=== PATIENT | female | born 1960 | race Hispanic/Latino ===

== ENCOUNTER 2019-02-10 22:15 | Emergency (ER) | payer OTHER ==
[~2019-02-10] VITALS: Ht 160 cm; Wt 91.6 kg
--- OUTSIDE RECORDS SUMMARY | 2019-02-10 22:17 | XMS REPORT | Encounter Summary ---
Author Organization Unknown Address [address] [place] [address] Phone [phone] Reason for Visit Medical Complaint Instructions 1. Acute upper respiratory infection rapid flu (A+B) upper respiratory infection (cold): care instructions benzonatate 200 mg capsule 2. Contact dermatitis dermatitis: care instructions triamcinolone acetonide 0.1 % topical cream 3. Rhinitis Depo-Medrol 80 mg/mL suspension for injection rhinitis: care instructions 4. Elevated blood pressure elevated blood pressure: care instructions dash diet: care instructions blood pressure monitoring education 5. Influenza vaccination declined Discussion Note: None recorded. Plan of Care Patient Instructions An upper respiratory infection, or URI, is an infection of the nose, sinuses, or throat. URIs are spread by coughs, sneezes, and direct contact. The common cold is the most frequent kind of URI. The flu and sinus infections are other kinds of URIs. Almost all URIs are caused by viruses. Antibiotics won't cure them. But you can treat most infections with home care. This may include drinking lots of fluids and taking cfly-nif-xzwfxnd pain medicine. You will probably feel better in 4 to 10 days. The doctor has checked you carefully, but problems can develop later. If you notice any problems or new symptoms, get medical treatment right away. Follow-up care is a medrano part of your treatment and safety. Be sure to make and go to all appointments, and call your doctor if you are having problems. It's also a good idea to know your test results and keep a list of the medicines you take. How can you care for yourself at home? To prevent dehydration, drink plenty of fluids, enough so that your urine is light yellow or clear like water. Choose water and other caffeine-free clear liquids until you feel better. If you have kidney, heart, or liver disease and have to limit fluids, talk with your doctor before you increase the amount of fluids you drink. Take an xzhf-dxx-urqqnom pain medicine, such as acetaminophen (Tylenol), ibuprofen (Advil, Motrin), or naproxen (Aleve). Read and follow all instructions on the label. Before you use cough and cold medicines, check the label. These medicines may not be safe for young children or for people with certain health problems. Be careful when taking awml-rrk-akjdmep cold or flu medicines and Tylenol at the same time. Many of these medicines have acetaminophen, which is Tylenol. Read the labels to make sure that you are not taking more than the recommended dose. Too much acetaminophen (Tylenol) can be harmful. Get plenty of rest. Do not smoke or allow others to smoke around you. If you need help quitting, talk to your doctor about stop-smoking programs and medicines. These can increase your chances of quitting for good. When should you call for help? Call 911 anytime you think you may need emergency care. For example, call if: You have severe trouble breathing. Call your doctor now or seek immediate medical care if: You seem to be getting much sicker. You have new or worse trouble breathing. You have a new or higher fever. You have a new rash. Watch closely for changes in your health, and be sure to contact your doctor if: You have a new symptom, such as a sore throat, an earache, or sinus pain. You cough more deeply or more often, especially if you notice more mucus or a change in the color of your mucus. You do not get better as expected. Reminders Provider Appointments None recorded. Lab Rapid Flu (A+B) 10/22/2018 [facility] Referral None recorded. Procedures None recorded. Surgeries None recorded. Imaging None recorded. Medications Name Start Date Advair Diskus 500 mcg-50 mcg/dose powder for inhalation INHALE 1 DOSE BY MOUTH TWICE DAILY. RINSE MOUTH AFTER USE albuterol sulfate 2.5 mg/3 mL (0.083 %) solution for nebulization USE 1 VIAL VIA NEBULIZER EVERY 4 TO 6 HOURS NEEDED FOR ASTHMA benzonatate 200 mg capsule Take 1 capsule 3 times a day by oral route as needed for coughing for 10 days. Depo-Medrol 80 mg/mL suspension for injection Take 1 mL by injection route. Enjuvia 0.3 mg tablet Take 1 tablet every day by oral route. EpiPen 2-Jass 0.3 mg/0.3 mL injection, auto-injector USE DIRECTED esomeprazole magnesium 40 mg capsule,delayed release Take 1 capsule every day by oral route. fluoxetine 20 mg capsule TAKE ONE CAPSULE BY MOUTH EVERY MORNING ipratropium bromide 42 mcg (0.06 %) nasal spray 1-2 PUFFS EACH SIDE OF NOSE TWICE A DAY TO 3 TIMES A DAY WHEN NECESSARY losartan 100 mg-hydrochlorothiazide 12.5 mg tablet montelukast 10 mg tablet TAKE 1 TABLET BY MOUTH EVERY DAY Nasonex 50 mcg/actuation [place] 2 sprays every day by intranasal route. Pataday Pataday 0.2 % eye drops INSTILL 1 DROP INTO AFFECTED EYE(S) BY OPHTHALMIC ROUTE ONCE DAILY Qvar 80 mcg/actuation Metered Aerosol oral inhaler rosuvastatin 20 mg tablet TAKE 1 TABLET BY MOUTH ONCE A DAY Spiriva Respimat 1.25 mcg/actuation solution for inhalation Inhale 2 puffs every day by inhalation route. triamcinolone acetonide 0.1 % topical cream APPLY A THIN LAYER TO THE AFFECTED AREA(S) BY TOPICAL ROUTE 2 TIMES PER DAY Xopenex 0.63 mg/3 mL solution for nebulization Give 1 inhalation every 20 minutes by nebulizer route as needed Xopenex HFA 45 mcg/actuation aerosol inhaler Inhale 2 puffs every 6 hours by inhalation route. Medications Administered Name Date Depo-Medrol 80 mg/mL suspension for injection Take 1 mL by injection route. [id number] Vitals Height Weight BMI Blood Pressure 5 ft 3 in 200 lbs 35.4 kg/m2 118/80 mm[Hg] Lab Results Date Name Specimen Result Interpretation Description Value Range Status Address Rapid Flu (A+B) Influenza a negative [facility]: [address] [place] [address] Influenza B negative [facility]: [address] [place] [address] Allergies Code Code System Name Reaction Severity Status Onset Penicillins Rash Severe Active Problems Name Status Onset Date Source Viral Bronchitis Active 07/28/2018 Hyperlipidemia Active 07/28/2018 Body Mass Index 30+ - Obesity Active 07/28/2018 Essential Hypertension Active 07/28/2018 Acute Exacerbation of Asthma Active 07/28/2018 Gastroesophageal Reflux Disease Active 07/28/2018 Immunization Advised Active 07/28/2018 Asthma Active Encounter Procedures Date Name Performed by Delivery Information not available Cholecystectomy Information not available Hysterectomy Information not available Vaccine List None recorded. Social History Smoking Status Never Smoker Past Encounters 10/22/2018 Acute Upper Respiratory Infection; Contact Dermatitis; Rhinitis; Elevated Blood Pressure; Influenza Vaccination Declined Rabia Nickerson, [facility]-C: [address] [facility], [place] [address], Ph. History of Present Illness Jtqy-Vqusgni-Fjuam-Skin Lesion-Bite 1 Reported By: Patient HPI: Location: neck. Quality: not itchy, not painful. Severity: improving. Context: no new detergents or skin products, no one else with similar rash, no sting or bite. Aggravating factors: nothing makes it worse. Associated Symptoms: no fever/chills, no muscle aches, no headache, no nausea, no vomiting, no diarrhea, no urinary symptoms, cold symptoms Edfxp-Lwwosnkyox-Coazodo Reported By: Patient HPI: Location: head/sinuses. Quality: nasal/sinus congestion. Duration: 2days. Onset/Timing: gradual. Context: no sick contacts, no foreign travel, non-smoker. Associated Symptoms: no sputum production, no shortness of breath, no wheezing, no change in number of pillows needed to sleep at night, no sweats, no significant weight gain, no significant weight loss, no morning cough, no sore throat, no vomiting, no diarrhea, no nausea, no fever, no headache, rash, muscle aches Note:58 YO female with rash around ears and back of neck, body aches, runny nose, nasal congestion, sneezing, sweats x 2 days Review of Systems:ROS as noted in the HPI Review of Systems Basic Reported By: Patient Notes: 58 YO female with rash around ears and back of neck, body aches, runny nose, nasal congestion, sneezing, sweats x 2 days Physical Exam Adult Basic, Adult Female Complete Reported By: Patient Constitutional: General Appearance: obese. Level of Distress: NAD. Ambulation: ambulating normally Psychiatric: Mental Status: active and alert. Orientation: to time, to place, to person Sqg-Fstf-Vcxhr-Throat: Ears: no lesions on external ear, no outer ear tenderness, EACs clear, TMs clear. Hearing: no hearing loss. Nose: no lesions on external nose, nares patent, no septal deviation, nasal passages clear, no sinus tenderness, no nasal discharge. Lips, Teeth, and Gums: no mouth or lip ulcers, no bleeding gums, normal dentition. Oropharynx: moist mucous membranes, no erythema, no exudates, tonsils not enlarged Lungs: Respiratory effort: no dyspnea, no tachypnea, no use of accessory muscles, no intercostal retractions. Auscultation: breath sounds normal Cardiovascular: Heart Auscultation: RRR, no murmurs Skin: Inspection and palpation: no lesions, no ulcer, no abnormal nevi, no induration, no nodules, good turgor, no jaundice, rash Notes: 58 YO female with rash around ears and back of neck, body aches, runny nose, nasal congestion, sneezing, sweats x 2 days
--- OUTSIDE RECORDS SUMMARY | 2019-02-10 22:17 | XMS REPORT | Continuity of Care Document ---
Author Author [place] Address Unknown Phone Unavailable Care Team Providers Care [employer] Machine [employer]er Name Role Phone 4tiitoo Unavailable Unavailable Problems Problem Status Onset Date Classification Date Reported Comments Source Rhinitis 10/22/2018 Diagnosis 10/23/2018 [facility] Contact dermatitis 10/22/2018 Diagnosis 10/23/2018 [facility] Elevated blood pressure 10/22/2018 Diagnosis 10/23/2018 [facility] Acute upper respiratory infection 10/22/2018 Diagnosis 10/23/2018 [facility] Body mass index 30+ - obesity 07/28/2018 Diagnosis 07/28/2018 [facility] Immunization advised 07/28/2018 Diagnosis 07/28/2018 [facility] Viral bronchitis 07/28/2018 Diagnosis 07/28/2018 [facility] Acute exacerbation of asthma 07/28/2018 Diagnosis 07/28/2018 [facility] Essential hypertension 07/28/2018 Diagnosis 07/28/2018 [facility] Viral Bronchitis 07/28/2018 Problem 10/23/2018 [facility] Hyperlipidemia 07/28/2018 Problem 10/23/2018 [facility] Body Mass Index 30+ - Obesity 07/28/2018 Problem 10/23/2018 [facility] Essential Hypertension 07/28/2018 Problem 10/23/2018 [facility] Acute Exacerbation of Asthma 07/28/2018 Problem 10/23/2018 [facility] Gastroesophageal Reflux Disease 07/28/2018 Problem 10/23/2018 [facility] Immunization Advised 07/28/2018 Problem 10/23/2018 [facility] Lower respiratory tract infection 08/16/2016 Diagnosis 08/16/2016 [facility] Colitis, Enteritis and Gastroenteritis Presumed Infectious Problem 08/16/2016 [facility] Bacterial Conjunctivitis Problem 08/16/2016 [facility] Common Cold Problem 08/16/2016 [facility] Acute Sinusitis Problem 08/16/2016 [facility] Acute Maxillary Sinusitis Problem 08/16/2016 [facility] Acute Upper Respiratory Infection Problem 08/16/2016 [facility] Asthma Problem 10/23/2018 [facility] Medications Medication Details Route Status Patient Instructions Ordering Provider Order Date Source Fluticasone propionate 0.5 MG/ACTUAT / salmeterol 0.05 MG/ACTUAT Dry Powder Inhaler Advair Diskus 500 mcg-50 mcg/dose powder for inhalation INHALE 1 DOSE BY MOUTH TWICE DAILY. RINSE MOUTH AFTER USE Active [facility] Albuterol 0.83 MG/ML Inhalant Solution albuterol sulfate 2.5 mg/3 mL (0.083 %) solution for nebulization USE 1 VIAL VIA NEBULIZER EVERY 4 TO 6 HOURS NEEDED FOR ASTHMA Active [facility] Amlodipine 5 MG Oral Tablet amlodipine 5 mg tablet Active [facility] benzonatate 200 MG Oral Capsule benzonatate 200 mg capsule Take 1 capsule 3 times a day by oral route as needed for coughing for 10 days. Active [facility] Brompheniramine Maleate 0.4 MG/ML / Dextromethorphan Hydrobromide 2 MG/ML / Pseudoephedrine Hydrochloride 6 MG/ML Oral Solution slqaclatijlisqi-ropvipbzqpdizdo-UU 2 mg-30 mg-10 mg/5 mL syrup Active [facility] cefdinir 300 MG Oral Capsule cefdinir 300 mg capsule Active [facility] Clarithromycin 500 MG Oral Tablet clarithromycin 500 mg tablet Active [facility] 24 HR Clarithromycin 500 MG Extended Release Oral Tablet clarithromycin ER 500 mg tablet,extended release 24 hr Active [facility] Rosuvastatin calcium 20 MG Oral Tablet [Crestor] Crestor 20 mg tablet Active [facility] Cholecalciferol 57879 UNT Oral Capsule [Decara] Decara 50,000 unit capsule Active [facility] Desonide 0.5 MG/ML Topical Cream desonide 0.05 % topical cream Active [facility] synthetic conjugated estrogens, B 0.3 MG Oral Tablet [Enjuvia] Enjuvia 0.3 mg tablet Take 1 tablet every day by oral route. Active [facility] 0.3 ML Epinephrine 1 MG/ML Auto-Injector [Epipen] EpiPen 2-Jass 0.3 mg/0.3 mL injection, auto-injector Active [facility] Esomeprazole 40 MG Delayed Release Oral Capsule esomeprazole magnesium 40 mg capsule,delayed release Take 1 capsule every day by oral route. Active [facility] Fluoxetine 20 MG Oral Capsule fluoxetine 20 mg capsule TAKE ONE CAPSULE BY MOUTH EVERY MORNING Active [facility] Gentamicin Sulfate ([facility]) 3 MG/ML Ophthalmic Solution gentamicin 0.3 % eye drops Active [facility] Ipratropium Webb 0.2 MG/ML Inhalant Solution ipratropium bromide 0.02 % solution for inhalation USE 1 VIAL VIA NEBULIZER EVERY 4 TO 6 HOURS NEEDED FOR ASTHMA Active [facility] Levofloxacin 500 MG Oral Tablet levofloxacin 500 mg tablet Active [facility] methylprednisolone 4 mg tablets in a dose pack methylprednisolone 4 mg tablets in a dose pack Active [facility] montelukast 10 MG Oral Tablet montelukast 10 mg tablet TAKE 1 TABLET BY MOUTH EVERY DAY Active [facility] NITROFURANTOIN, MACROCRYSTALS 25 MG / Nitrofurantoin, Monohydrate 75 MG Oral Capsule nitrofurantoin monohydrate/macrocrystals 100 mg capsule Active [facility] Nitroglycerin 0.4 MG Sublingual Tablet [Nitrostat] Nitrostat 0.4 mg sublingual tablet Active [facility] pantoprazole 40 MG Delayed Release Oral Tablet pantoprazole 40 mg tablet,delayed release Active [facility] Microencapsulated Potassium Chloride 20 MEQ Extended Release Oral Tablet potassium chloride ER 20 mEq tablet,extended release(part/cryst) Active [facility] Prednisone 20 MG Oral Tablet prednisone 20 mg tablet Active [facility] Estrogens, Conjugated ([facility]) 0.3 MG Oral Tablet [Premarin] Premarin 0.3 mg tablet Active [facility] 200 ACTUAT Albuterol 0.09 MG/ACTUAT Metered Dose Inhaler [ProAir] ProAir HFA 90 mcg/actuation aerosol inhaler INHALE 2 PUFFS BY MOUTH EVERY 4-6 HOURS NEEDED Active [facility] Dextromethorphan Hydrobromide 3 MG/ML / Promethazine Hydrochloride 1.25 MG/ML Oral Solution promethazine-DM 6.25 mg-15 mg/5 mL syrup Take 5 mL every 6 hours by oral route. Active [facility] Beclomethasone Dipropionate 0.08 MG/ACTUAT Metered Dose Inhaler Qvar 80 mcg/actuation Metered Aerosol oral inhaler Active [facility] Dexamethasone 1 MG/ML / Tobramycin 3 MG/ML Ophthalmic Suspension tobramycin 0.3 %-dexamethasone 0.1 % eye drops,suspension Active [facility] Triamcinolone Acetonide 1 MG/ML Topical Cream triamcinolone acetonide 0.1 % topical cream APPLY A THIN LAYER TO THE AFFECTED AREA(S) BY TOPICAL ROUTE 2 TIMES PER DAY Active [facility] Hydrochlorothiazide 50 MG / Triamterene 75 MG Oral Tablet triamterene 75 mg-hydrochlorothiazide 50 mg tablet Active [facility] Hyoscyamine Sulfate 0.12 MG / Methenamine 118 MG / Methylene blue 10 MG / phenyl salicylate 36 MG / Sodium Phosphate, Monobasic 40.8 MG Oral Capsule Uro-MP 118 mg-10 mg-40.8 mg-36 mg capsule Active [facility] omalizumab 150 MG Injection [Xolair] Xolair 150 mg subcutaneous solution Active [facility] Azithromycin 250 MG Oral Tablet Zithromax Z-Jass 250 mg tablet TAKE 2 TABLETS (500 MG) BY ORAL ROUTE ONCE DAILY FOR 1 DAY THEN 1 TABLET (250 MG) BY ORAL ROUTE ONCE DAILY FOR 4 DAYS Active [facility] Albuterol 0.83 MG/ML Inhalation Solution albuterol sulfate 2.5 mg/3 mL (0.083 %) solution for nebulization USE 1 VIAL VIA NEBULIZER EVERY 4 TO 6 HOURS NEEDED FOR ASTHMA Active [facility] 1 ML methylprednisolone acetate 80 MG/ML Injection [Depo-Medrol] Depo-Medrol 80 mg/mL suspension for injection Take 1 mL by injection route. Active [facility] [id number] 0.3 ML Epinephrine 1 MG/ML Auto-Injector [Epipen] EpiPen 2-Jass 0.3 mg/0.3 mL injection, auto-injector USE DIRECTED Active [facility] Ipratropium Webb 0.042 MG/ACTUAT Metered Dose Nasal [place] ipratropium bromide 42 mcg (0.06 %) nasal spray 1-2 PUFFS EACH SIDE OF NOSE TWICE A DAY TO 3 TIMES A DAY WHEN NECESSARY Active [facility] Hydrochlorothiazide 12.5 MG / Losartan Potassium 100 MG Oral Tablet losartan 100 mg-hydrochlorothiazide 12.5 mg tablet Active [facility] mometasone furoate 0.05 MG/ACTUAT Metered Dose Nasal [place] [Nasonex] Nasonex 50 mcg/actuation [place] 2 sprays every day by intranasal route. Active [facility] Pataday Pataday Active [facility] olopatadine 2 MG/ML Ophthalmic Solution [Pataday] Pataday 0.2 % eye drops INSTILL 1 DROP INTO AFFECTED EYE(S) BY OPHTHALMIC ROUTE ONCE DAILY Active [facility] Rosuvastatin calcium 20 MG Oral Tablet rosuvastatin 20 mg tablet TAKE 1 TABLET BY MOUTH ONCE A DAY Active [facility] tiotropium 0.30821 MG/ACTUAT Metered Dose Inhaler Spiriva Respimat 1.25 mcg/actuation solution for inhalation Inhale 2 puffs every day by inhalation route. Active [facility] Levalbuterol 0.21 MG/ML Inhalation Solution [Xopenex] Xopenex 0.63 mg/3 mL solution for nebulization Give 1 inhalation every 20 minutes by nebulizer route as needed Active [facility] 200 ACTUAT Levalbuterol 0.045 MG/ACTUAT Metered Dose Inhaler [Xopenex] Xopenex HFA 45 mcg/actuation aerosol inhaler Inhale 2 puffs every 6 hours by inhalation route. Active [facility] Brompheniramine Maleate 0.4 MG/ML / Dextromethorphan Hydrobromide 2 MG/ML / Pseudoephedrine Hydrochloride 6 MG/ML Oral Solution [Bromfed DM] Bromfed DM 2 mg-30 mg-10 mg/5 mL syrup Take 10 mL every 8 hours by oral route at bedtime for 5 days. Active [facility] Dexamethasone phosphate 4 MG/ML Injectable Solution dexamethasone 4 mg/mL injection solution Take 1 mL by injection route. Active [facility] olopatadine 7 MG/ML Ophthalmic Solution [Pazeo] Pazeo 0.7 % eye drops PLACE 1 DROP IN EACH EYE ONCE A DAY NEEDED Active [facility] Levalbuterol 0.21 MG/ML Inhalant Solution [Xopenex] Xopenex 0.63 mg/3 mL solution for nebulization Give 1 inhalation every 20 minutes by nebulizer route as needed Active [facility] Allergies, Adverse Reactions, Alerts Substance Category Reaction Severity Reaction type Status Date Reported Comments Source Penicillins Rash Severe Allergy to substance 06/22/2012 [facility] Immunizations No Data Provided for This Section Results Order Name Results Value Reference Range Date Interpretation Comments Source Influenza A negative 10/22/2018 [facility] Influenza B negative 10/22/2018 [facility] PEF 439 07/28/2018 [facility] Percent Predicted Value 70.6% 07/28/2018 [facility] PEF 439 07/28/2018 [facility] Percent Predicted Value 51 07/28/2018 [facility] Pathology Reports No Data Provided for This Section Diagnostic Reports No Data Provided for This Section Consultation Notes No Data Provided for This Section Discharge Summaries No Data Provided for This Section History and Physicals No Data Provided for This Section Vital Signs Vital Sign Value Date Comments Source Diastolic (mm Hg) 80 10/22/2018 [facility] Height 63 10/22/2018 [facility] Systolic (mm Hg) 118 10/22/2018 [facility] Weight 200 10/22/2018 [facility] Diastolic (mm Hg) 84 07/28/2018 [facility] Height 63 07/28/2018 [facility] Systolic (mm Hg) 122 07/28/2018 [facility] Weight 200 07/28/2018 [facility] Diastolic (mm Hg) 84 08/16/2016 [facility] Height 63 08/16/2016 [facility] Systolic (mm Hg) 122 08/16/2016 [facility] Weight 181 08/16/2016 [facility] Encounters Location Location Details Encounter Type Encounter Number Reason For Visit Attending Provider ADM Date DC Date Status Source [place] - [facility] - [id number] MIGDALIA Sandoavl-C: [address] [place] [address], Ph. [phone] [id number] Robin Vaughn 08/16/2016 [facility] [place] - [facility] - [id number] MIGDALIA Corona-C: [address] [place] [address], Ph. [id number] Shirley Starr 07/28/2018 [facility] [place] - [facility] [id number] MIGDALIA Cade-C: [address] [place] [address], Ph. [id number] Rabia Nickerson 10/22/2018 [facility] [place] - [facility] - [id number] MIGDALIA Cade-C: [address] [facility], [place] [address], Ph. [id number] Benignomariusz Krishan 10/22/2018 [facility] Procedures Procedure Code Date Perfomer Comments Source Delivery [facility] Cholecystectomy [facility] Hysterectomy [facility] Delivery [address] [facility] Assessment and Plan No Data Provided for This Section Plan of Care No Data Provided for This Section Social History Social History Date Source Smoking Status Never Smoker 06/22/2012 [facility] Family History No Data Provided for This Section Advance Directives No Data Provided for This Section Functional Status No Data Provided for This Section
--- OUTSIDE RECORDS SUMMARY | 2019-02-10 22:17 | XMS REPORT | Encounter Summary ---
Author Organization Unknown Address [address] [place] [address] Phone [phone] Reason for Visit Medical Complaint Instructions 1. Acute exacerbation of asthma peak flow peak flow dexamethasone 4 mg/mL injection solution Xopenex 0.63 mg/3 mL solution for nebulization patient follow up phone call 2. Viral bronchitis Bromfed DM 2 mg-30 mg-10 mg/5 mL syrup 3. Essential hypertension high blood pressure: care instructions 4. Hyperlipidemia high cholesterol: care instructions 5. Immunization advised 6. Body mass index 30+ - obesity body mass index: care instructions Discussion Note Pt is in NAD; Verbalizes understanding of all instructions with no questions at this time. Plan of Care Patient Instructions Start Bromfed DM for cough. Continue your resuce Inhaler 2 puffs every 4-6 hrs as needed for shortness of breath/wheezing. Next treatment at 8-10 pm. Continue daily inhalers and asthma medications as directed by your utilization specialist. Take medications as prescribed and follow up with a PCP within 2-3 if symptoms worsen as discussed. In case of emergency call 911 or go to nearest ER. Recommend monitor BP at home and document, bring BP log to PCP for review. Recommend follow a low sodium/fat/carb diet and exercise 30-45 mins/d 3-4 days a week once symptoms resolve. Reminders Provider Appointments None recorded. Lab None recorded. Referral None recorded. Procedures None recorded. Surgeries None recorded. Imaging None recorded. Medications Name Start Date Advair Diskus 500 mcg-50 mcg/dose powder for inhalation INHALE 1 DOSE BY MOUTH TWICE DAILY. RINSE MOUTH AFTER USE albuterol sulfate 2.5 mg/3 mL (0.083 %) solution for nebulization USE 1 VIAL VIA NEBULIZER EVERY 4 TO 6 HOURS NEEDED FOR ASTHMA Bromfed DM 2 mg-30 mg-10 mg/5 mL syrup Take 10 mL every 8 hours by oral route at bedtime for 5 days. dexamethasone 4 mg/mL injection solution Take 1 mL by injection route. EpiPen 2-Jass 0.3 mg/0.3 mL injection, auto-injector USE DIRECTED esomeprazole magnesium 40 mg capsule,delayed release Take 1 capsule every day by oral route. fluoxetine 20 mg capsule TAKE ONE CAPSULE BY MOUTH EVERY MORNING losartan 100 mg-hydrochlorothiazide 12.5 mg tablet montelukast 10 mg tablet TAKE 1 TABLET BY MOUTH EVERY DAY Nasonex 50 mcg/actuation [place] Daggett 2 sprays every day by intranasal route. Pataday Pataday 0.2 % eye drops INSTILL 1 DROP INTO AFFECTED EYE(S) BY OPHTHALMIC ROUTE ONCE DAILY Pazeo 0.7 % eye drops PLACE 1 DROP IN EACH EYE ONCE A DAY NEEDED Qvar 80 mcg/actuation Metered Aerosol oral inhaler rosuvastatin 20 mg tablet TAKE 1 TABLET BY MOUTH ONCE A DAY Spiriva Respimat 1.25 mcg/actuation solution for inhalation Inhale 2 puffs every day by inhalation route. Xopenex 0.63 mg/3 mL solution for nebulization Give 1 inhalation every 20 minutes by nebulizer route as needed Xopenex HFA 45 mcg/actuation aerosol inhaler Inhale 2 puffs every 6 hours by inhalation route. Medications Administered Name Date dexamethasone 4 mg/mL injection solution Take 1 mL by injection route. [id number]:25:24 Xopenex 0.63 mg/3 mL solution for nebulization Give 1 inhalation every 20 minutes by nebulizer route as needed [id number]:25:49 Vitals Height Weight BMI Blood Pressure 5 ft 3 in 200 lbs 35.4 kg/m2 122/84 mm[Hg] Lab Results Date Name Specimen Result Interpretation Description Value Range Status Address Peak Flow Pef 439 [facility]: [address] [place] [address] Percent Predicted Value 70.6% [facility]: [address] [place] [address] Peak Flow Pef 439 [facility]: [address] [place] [address] Percent Predicted Value 51% [facility]: [address] [place] [address] Allergies Code Code System Name Reaction Severity [...] History Smoking Status Never Smoker Past Encounters 07/28/2018 Acute Exacerbation of Asthma; Viral Bronchitis; Essential Hypertension; Hyperlipidemia; Immunization Advised; Body Mass Index 30+ - Obesity Shirley Starr, [employer]: [address] [place] [address], Ph. History of Present Illness Cough Reported By: Patient HPI: Location: chest. Quality: productive cough, colored phlegm, congested, hacking cough, wheezy cough. Duration: symptoms lasting over 2 weeks. Severity: moderate. Onset/Timing: gradual. Context: no sick contacts, allergies, asthma; Pt follows with utilization specialist for asthma management. She is on multiple inhalers. Next f/u is in 2 weeks. 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 He symptoms did not improve and she had a refill left on this ABX so she took another course of it with no improvement. Associated Symptoms: no sputum production, no sweats, no significant weight gain, no significant weight loss, no morning cough, no sore throat, no vomiting, no diarrhea, no rash, no nausea, no fever/chills, no muscle aches, chest pain, shortness of breath, wheezing, difficulty breathing at night, fatigue, headache Review of Systems:ROS as noted in the HPI Review of Systems Basic Reported By: Patient Physical Exam Adult Basic, Adult Female Complete Reported By: Patient Constitutional: General Appearance: obese. Level of Distress: NAD. Ambulation: ambulating normally Psychiatric: Mental Status: active and alert. Orientation: to time, to place, to person Eyes: Lids and Conjunctivae: non-injected, no discharge, no pallor Cwo-Calz-Rrwuq-Throat: Ears: no lesions on external ear, no outer ear tenderness, EACs clear, TMs clear. Hearing: no hearing loss. Nose: no lesions on external nose, nares patent, no septal deviation, nasal passages clear, no sinus tenderness, no nasal discharge. Lips, Teeth, and Gums: no mouth or lip ulcers, no bleeding gums, normal dentition. Oropharynx: moist mucous membranes, no erythema, no exudates, tonsils not enlarged Neck: Lymph Nodes: no cervical LAD Lungs: Respiratory effort: no dyspnea, no tachypnea, no use of accessory muscles, no intercostal retractions. Auscultation: expiratory wheezing Cardiovascular: Heart Auscultation: RRR, no murmurs Neurologic: Gait and Station: normal gait, normal station Notes:
--- OUTSIDE RECORDS SUMMARY | 2019-02-10 22:17 | XMS REPORT | Encounter Summary ---
Author Organization Unknown Address [address] [place] [address] Phone [phone] Reason for Visit Medical Complaint Instructions 1. [...] include drinking lots of fluids and taking ycwj-ehf-ynqodyy pain medicine. You will probably feel better [...] amount of fluids you drink. Take an gpwc-flp-glavehn pain medicine, such as acetaminophen (Tylenol), ibuprofen (Advil, Motrin), or naproxen (Aleve). Read and follow all instructions on the label. Before you use cough and cold medicines, check the label. These medicines may not be safe for young children or for people with certain health problems. Be careful when taking zfep-lij-albbciu cold or flu medicines and Tylenol at [...] BY MOUTH EVERY DAY Nasonex 50 mcg/actuation [place] 2 sprays every day by intranasal route. [...] injection Take 1 mL by injection route. [id number]:18:58 Vitals Height Weight BMI Blood Pressure 5 ft 3 in 200 lbs 35.4 kg/m2 118/80 mm[Hg] Lab Results Date Name Specimen Result Interpretation Description Value Range Status Address Rapid Flu (A+B) Influenza a negative [facility]: [address] [place] [address] Influenza B negative [facility]: [address] [place] [address] Allergies Code Code System Name Reaction Severity [...] Blood Pressure; Influenza Vaccination Declined Rabia Nickerson, [facility]: [address] [facility] [place] [address], Ph. History of Present Illness Mbsm-Wtymobt-Zotql-Skin Lesion-Bite 1 Reported By: Patient HPI: Location: neck. Quality: not itchy, not painful. Severity: improving. Context: no new detergents or skin products, no one else with similar rash, no sting or bite. Aggravating factors: nothing makes it worse. Associated Symptoms: no fever/chills, no muscle aches, no headache, no nausea, no vomiting, no diarrhea, no urinary symptoms, cold symptoms Ckbtv-Nwxbiinbev-Tkkqggd Reported By: Patient HPI: Location: head/sinuses. Quality: [...] Orientation: to time, to place, to person Miv-Vppm-Zxfyo-Throat: Ears: no lesions on external ear, no [...]
--- OUTSIDE RECORDS SUMMARY | 2019-02-10 22:18 | XMS REPORT ---
Author [facility] Address Unknown Phone Unavailable Care Team Providers Care Professor Of Literature Name Role Phone MICHELLE HORTON Unavailable Unavailable Problems This patient has no known problems. Allergies, Adverse Reactions, Alerts This patient has no known allergies or adverse reactions. Medications This patient has no known medications. Encounters Start Date/Time End Date/Time Encounter Type Admission Type Attending Clinicians Care Facility Care Department Encounter ID 2017-01-07 20:00:00 2017-01-07 23:59:00 Outpatient [facility] [id number] 2016-12-14 20:00:00 2016-12-14 23:59:00 Outpatient Jeff HORTON [facility] [id number] Results Test Description Test Time Test Comments Text Results Atomic Results Result Comments SCR MAMM BILATERAL JACOB CAD DIGITAL 2018-07-02 08:36:40 - SCR MAMM BILATERAL JACOB CAD DIGITALBILATERAL DIGITAL SCREENING MAMMOGRAM 3D/2D WITH CAD: 06/30/2018CLINICAL: Asymptomatic. Digital breast tomosynthesis was performed in addition to routine CC and MLO views. Current mammographic images were evaluated by either a STYLIGHT M-Vu or a [employer] ImageChecker CAD (computer aided detection system). Comparison is made to exams dated 06/29/2017 mammogram, mammogram, and 07/02/2015 mammogram - [facility]. The tissue of both breasts is predominantly fatty. There are benign calcifications in both breasts. There also are post operative findings in both breasts. No suspicious mass, architectural distortion, malignant type calcification, or lymph node abnormality detected. Breast architecture is stable compared to prior exams.IMPRESSION: BENIGNThere is no mammographic evidence of malignancy. Resume annual screening mammography in one year. Joshua eGronimo M.D. ss/penrad:07/02/2018 08:36:40 Weaving Loom Operator: Manda RONQUILLO, [facility] sent: BIRADS 1-2 Normal Mammogram BI-RADS: 2 Benign
--- OUTSIDE RECORDS SUMMARY | 2019-02-10 22:18 | XMS REPORT | Encounter Summary ---
Author Organization Unknown Address [address] [place] [id number] Phone [phone] Reason for Visit Medical Complaint Instructions 1. Lower respiratory tract infection Zithromax Z-Jass 250 mg tablet promethazine-DM 6.25 mg-15 mg/5 mL syrup Discussion Note: None recorded. Patient educational handouts: No information available. Plan of Care Patient Instructions take medication as directed. follow up pcp Reminders Provider Appointments None recorded. Lab None recorded. Referral None recorded. Procedures None recorded. Surgeries None recorded. Imaging None recorded. Medications Name Start Date Advair Diskus 500 mcg-50 mcg/dose powder for inhalation albuterol sulfate 2.5 mg/3 mL (0.083 %) solution for nebulization USE 1 VIAL VIA NEBULIZER EVERY 4 TO 6 HOURS NEEDED FOR ASTHMA amlodipine 5 mg tablet benzonatate 200 mg capsule ruiyxamdjiqnkxw-sztblzpsohfsqht-HD 2 mg-30 mg-10 mg/5 mL syrup cefdinir 300 mg capsule clarithromycin 500 mg tablet clarithromycin ER 500 mg tablet,extended release 24 hr Crestor 20 mg tablet Decara 50,000 unit capsule desonide 0.05 % topical cream Enjuvia 0.3 mg tablet EpiPen 2-Jass 0.3 mg/0.3 mL injection, auto-injector esomeprazole magnesium 40 mg capsule,delayed release fluoxetine 20 mg capsule gentamicin 0.3 % eye drops ipratropium bromide 0.02 % solution for inhalation USE 1 VIAL VIA NEBULIZER EVERY 4 TO 6 HOURS NEEDED FOR ASTHMA levofloxacin 500 mg tablet methylprednisolone 4 mg tablets in a dose pack montelukast 10 mg tablet nitrofurantoin monohydrate/macrocrystals 100 mg capsule Nitrostat 0.4 mg sublingual tablet pantoprazole 40 mg tablet,delayed release potassium chloride ER 20 mEq tablet,extended release(part/cryst) prednisone 20 mg tablet Premarin 0.3 mg tablet ProAir HFA 90 mcg/actuation aerosol inhaler INHALE 2 PUFFS BY MOUTH EVERY 4-6 HOURS NEEDED promethazine-DM 6.25 mg-15 mg/5 mL syrup Take 5 mL every 6 hours by oral route. Qvar 80 mcg/actuation Metered Aerosol oral inhaler tobramycin 0.3 %-dexamethasone 0.1 % eye drops,suspension triamcinolone acetonide 0.1 % topical cream triamterene 75 mg-hydrochlorothiazide 50 mg tablet Uro-MP 118 mg-10 mg-40.8 mg-36 mg capsule Xolair 150 mg subcutaneous solution Zithromax Z-Jass 250 mg tablet TAKE 2 TABLETS (500 MG) BY ORAL ROUTE ONCE DAILY FOR 1 DAY THEN 1 TABLET (250 MG) BY ORAL ROUTE ONCE DAILY FOR 4 DAYS Medications Administered None recorded. Vitals Height Weight BMI Blood Pressure 5 ft 3 in 181 lbs 32.1 122/84 Lab Results None recorded. Allergies Name Reaction Severity Onset Penicillins Rash Severe Problems Name Status Onset Date Source Colitis, Enteritis and Gastroenteritis Presumed Infectious Active Encounter Bacterial Conjunctivitis Active Encounter Common Cold Active Encounter Acute Sinusitis Active Encounter Acute Maxillary Sinusitis Active Encounter Acute Upper Respiratory Infection Active Encounter Asthma Active Encounter Procedures Date Name Performed by Delivery Information not available Cholecystectomy Information not available Hysterectomy Information not available Vaccine List None recorded. Social History Smoking Status Never Smoker Past Encounters 08/16/2016 Lower Respiratory Tract Infection Robin Vaughn, [facility]: [address] [place] [address], Ph. History of Present Illness Mopfo-Vdcwxbkgxw-Vttwrnu Reported By: Patient HPI: Location: head/sinuses. Quality: nasal/sinus congestion, dry cough. Duration: 2days. Severity: moderate. Onset/Timing: gradual. Context: no sick contacts, no foreign travel, non-smoker. Associated Symptoms: no sputum production, no shortness of breath, no wheezing, no change in number of pillows needed to sleep at night, no sweats, no significant weight gain, no significant weight loss, no morning cough, no sore throat, no vomiting, no diarrhea, no rash, no nausea, no fever, no muscle aches, no headache Review of Systems:ROS as noted in the HPI Review of Systems Basic Reported By: Patient Physical Exam Adult Basic, Adult Female Complete Reported By: Patient Constitutional: General Appearance: healthy-appearing, well-nourished. Level of Distress: NAD Psychiatric: Mental Status: active and alert Eyes: Lids and Conjunctivae: non-injected, no discharge Qxl-Nwyx-Xjuft-Throat: Ears: no lesions on external ear, no outer ear tenderness, EACs clear, TMs clear. Hearing: no hearing loss. Nose: sinus tenderness; congestion. Lips, Teeth, and Gums: no mouth or lip ulcers. Oropharynx: moist mucous membranes, no erythema, no exudates, tonsils not enlarged Neck: Neck: trachea midline. Lymph Nodes: no cervical LAD Lungs: Auscultation: dry rales/crackles Cardiovascular: Heart Auscultation: RRR, no murmurs
[2019-02-10 22:52] LABS: BASOPHILS # (AUTO) 0.1 (0.0-0.1); BASOPHILS % 0.6 % (0.0-1.0); EOSINOPHILS # (AUTO) 0.2 (0.0-0.4); EOSINOPHILS % 2.2 % (0.0-6.0); HEMATOCRIT 46.9 % (34.2-44.1); HEMOGLOBIN 16.2 g/dL (12.0-16.0); LYMPHOCYTES # (AUTO) 3.2 (1.0-3.2); LYMPHOCYTES % 33.6 % (18.0-39.1); MEAN CORPUSCULAR HEMOGLOBIN 35.4 pg (28-32); MEAN CORPUSCULAR HGB CONC 34.5 g/dL (31-35); MEAN CORPUSCULAR VOLUME 102.6 fL (81-99); MONOCYTES # (AUTO) 0.7 (0.2-0.8); MONOCYTES % 7.2 % (4.4-11.3); NEUTROPHILS # (AUTO) 5.4 (2.1-6.9); NEUTROPHILS % 56.1 % (38.7-80.0); PLATELET COUNT 304 x10e3/uL (140-360); RED BLOOD COUNT 4.57 x10e6/uL (3.6-5.1); RED CELL DISTRIBUTION WIDTH 12.9 % (11.7-14.4)
[2019-02-10 23:05] LABS: AMPHETAMINES SCREEN,URINE NEGATIVE (NEGATIVE); PHENCYCLIDINE SCREEN,URINE NEGATIVE (NEGATIVE)
[2019-02-10 23:06] LABS: BENZODIAZEPINES SCREEN,URINE NEGATIVE (NEGATIVE)
[2019-02-10 23:29] LABS: ALBUMIN 3.6 g/dL (3.5-5.0); ALBUMIN/GLOBULIN RATIO 1.1 (0.8-2.0); ANION GAP 15.1 mmol/L (8-16); CALCIUM 9.5 mg/dL (8.4-10.2); CREATININE, SERUM 0.96 mg/dL (0.57-1.11); POTASSIUM 3.1 mmol/L (3.5-5.1)
[2019-02-10 23:38] LABS: CREATINE KINASE MB 5.4 ng/mL (0-5.0)
[2019-02-11] MEDS ORDERED: POTASSIUM CHLORIDE 20 MEQ TAB CR PO STA (01:40)
[2019-02-11] MEDS ORDERED: POTASSIUM CHLORIDE 20 MEQ TAB CR PO ONE (01:46)
[2019-02-11 01:48] VITALS: BP_SYST 107
== END 2019-02-11 01:56 | disposition home or self-care (01) ==
LOC: ER 22:15
DX: R41.82 Altered mental status, unspecified (principal); F10.120 Alcohol abuse with intoxication, uncomplicated
CPT/HCPCS: 36415; 80053; 80307; 80320; 82550; 82553; 84484; 85025; 93005; 99284

== ENCOUNTER → 2021-06-09 | Day surgery (SDC) | payer BC ==
[2021-06-07 14:35] LABS: BASOPHILS % 0.4 % (0.0-1.0); EOSINOPHILS # (AUTO) 0.1 (0.0-0.4); EOSINOPHILS % 0.7 % (0.0-6.0); HEMATOCRIT 49.4 % (34.2-44.1); HEMOGLOBIN 16.7 g/dL (12.0-16.0); LYMPHOCYTES # (AUTO) 2.4 (1.0-3.2); LYMPHOCYTES % 23.9 % (18.0-39.1); MEAN CORPUSCULAR HEMOGLOBIN 36.5 pg (28-32); MEAN CORPUSCULAR HGB CONC 33.8 g/dL (31-35); MEAN CORPUSCULAR VOLUME 108.1 fL (81-99); MONOCYTES # (AUTO) 0.6 (0.2-0.8); MONOCYTES % 6.3 % (4.4-11.3); NEUTROPHILS % 68.2 % (38.7-80.0); PLATELET COUNT 306 x10e3/uL (140-360); RED BLOOD COUNT 4.57 x10e6/uL (3.6-5.1); RED CELL DISTRIBUTION WIDTH 12.2 % (11.7-14.4)
[2021-06-07 14:52] LABS: ANION GAP 15.9 mmol/L (8-16); CALCIUM 9.1 mg/dL (8.4-10.2); CREATININE, SERUM 1.2 mg/dL (0.57-1.11); POTASSIUM 3.9 mmol/L (3.5-5.1)
[~2021-06-09] MED LIST: ADVAIR 500/501 EA INH; ALBUTEROL SULF 0.083% NEB SOLN 3 ML NEB ONE; BUPIVACAINE 0.25% 30ML SDV ONE; DEXAMETHASONE SOD PHOS INJ 4 MG/ML SDV ONE; EPINEPHRINE 2.25% INH NEBU SOL 0.5 ML VIAL ONE; FENTANYL CITRATE/PF 100MCG/2 ML INJ ONE; FLUOXETINE HCL40 MG PO; GLYCOPYRROLATE INJ 0.2 MG/ML VIAL ONE; LEVOFLOXACIN 500MG/D5W 100ML 100 ML IV ONE; LIDOCAINE HCL 2% LOCAL INJ 5 ML SDV VIAL INJ ONE; MIDAZOLAM HCL 2 MG/2 ML VIAL ONE; NEOSTIGMINE 1 MG/ML 10ML VIAL ONE; ONDANSETRON HCL INJ 2MG/ML 2ML 2 MG/ML VIAL ONE; POVIDONE IODINE 0.05% 0.05 % ML PO ONE; PROPOFOL IV EMULSION 10 MG/ML 20 ML VIAL ONE; ROCURONIUM BROMIDE 10 MG/ML 5ML VIAL IV ONE; SEVOFLURANE INHAL SOLN 250 ML PEN BTL ONE; SPIRIVA18 MCG INH; XOLAIR150 MG IM
[2021-06-09 12:40] VITALS: BP 112/65
== END | disposition home or self-care (01) ==
LOC: OR 06:52
PROVIDERS: ATTEND Surgery
DX: K43.2 Incisional hernia without obstruction or gangrene (principal); M60.28 Foreign body granuloma of soft tissue, not elsewhere classified, other site; J45.909 Unspecified asthma, uncomplicated; I10 Essential (primary) hypertension; F32.A Depression, unspecified; Z18.89 Other specified retained foreign body fragments; Z88.0 Allergy status to penicillin; Z01.810 Encounter for preprocedural cardiovascular examination; Z01.812 Encounter for preprocedural laboratory examination; Z01.818 Encounter for other preprocedural examination; Z20.822 Contact with and (suspected) exposure to COVID-19; Z79.899 Other long term (current) drug therapy
CPT/HCPCS: 36415; 49565 ×2; 71046; 80048; 85025; 93005; J1100; J1956; J2001; J2250; J2405; J2704; J2710; J3010; U0002